=== PATIENT | female | born 1950 | race Caucasian/White ===

== ENCOUNTER 2018-08-04 09:26 | Day surgery (SDC) | payer BC, MEDICARE ==
--- NOTE | 2018-08-04 07:02 | History and Physical - [facility] ---
CHIEF COMPLAINT/HISTORY OF CHIEF COMPLAINT: This patient with a history of an implanted spinal cord stimulator 01/08/10 has had a battery depletion and is here for battery change. PAST MEDICAL HISTORY: Hypertension and thoracic aneurysm. MEDICATIONS ON ADMISSION: List to be provided. ALLERGIES: List to be provided. SYSTEMS REVIEW: The patient seems appropriate in no acute distress. The remainder of the systems review is positive for intractable lumbar radiculopathy. PHYSICAL EXAMINATION: Height and weight are not known. No vital signs. HEENT: Within normal limits. LUNGS: Clear. HEART: Rapid and regular. ABDOMEN: Nontender. MUSCULOSKELETAL: Examination of the musculoskeletal system, the incision for the generator in the right posterior gluteal margin was identified and the skin incision was intact. No breakdown or cellulitis. Bilateral lower extremity pain identified. No motor or sensory abnormalities. NEUROLOGIC: Cranial nerves are intact. IMPRESSION: 1. INTRACTABLE LUMBAR RADICULOPATHY, ICD-10 CODE M54.16 AND M54.17. 2. SPINAL CORD STIMULATOR AND INTERNAL GENERATOR, NONFUNCTIONAL. PLAN: The patent is here for a generator change. The procedure will be considered outpatient. An overnight stay should not be required. We will make no attempts to change the leads, only the generator. JOB NUMBER: [id number] MTDD
[~2018-08-04 09:26] MED LIST: 0.9 % SODIUM CHLORIDE 500ML 500 ML IV ONE; ACETAMINOPHEN 1,000 MG/100 ML BTL IVPB ONE; CEFAZOLIN 1 Gram 1 GM/50 ML BAG IVPB ONE; CEFAZOLIN 2 Gram 2 GM/50 ML BAG IVPB ONE; FAMOTIDINE 20MG TABLET PO ONE; MECLIZINE 25 MG TABLET PO ONE; METOCLOPRAMIDE 10 MG TABLET PO ONE; RINGERS SOLUTION,LACTATED 1,000 ML IV ONE
[2018-08-04] MEDS ORDERED: MIDAZOLAM HCL 2MG/2ML VIAL IV ONE (09:27)
[2018-08-04] MEDS ORDERED: LIDOCAINE 2% MDV (20MG/ML) 20ML VIAL IV ONE (09:27)
[2018-08-04] MEDS ORDERED: FENTANYL PF 100MCG/2ML VIAL IV ONE (09:27)
[2018-08-04] MEDS ORDERED: PROPOFOL 10 MG/ML VIAL IV ONE (09:27)
[2018-08-04] MEDS ORDERED: RINGERS SOLUTION,LACTATED 1,000 ML IV ONE ×2 (11:32→14:02)
[2018-08-04] MEDS ORDERED: BUPIVACAINE 0.5% W/EPI MPF 30 ML VIAL SQ ONE (13:47)
[2018-08-04] MEDS ORDERED: LIDOCAINE 1% W/EPI 1:100,000 MDV 20 ML VIAL SQ ONE (13:47)
--- NOTE | 2018-08-06 10:00 | Operative Note ---
DATE OF SURGERY: 08/04/2018 PREOPERATIVE DIAGNOSES: 1. Intractable lumbar radiculopathy ICD-10 code 954.16, M54.17. 2. Spinal cord stimulator and internal generator with battery depletion. SURGERY: Fluoroscopic-guided subcutaneous dissection, removal and replaced with internal pulse generator for a spinal cord stimulator. SURGEON: Donny Quintero D.O. INDICATIONS: This patient presents with a history of a spinal cord stimulator implant a number of years previous. Excellent results with the system. Over the last 6 months, this patient has noticed degrading stimulation patterns and then it completely ceased function. Computer assessment of the generator showed battery depletion. She is here for battery change without lead manipulation. ANESTHESIA PROVIDER: Yue Saab. PROCEDURE: Intravenous line, vital signs monitored, IV sedation. The patient positioned prone, sterile prep, sterile technique at the right posterior gluteal margin. The previous incision infiltrated, incision made and sub dissection was conducted to the generator pouch. The pouch was opened. The generator exteriorized and from the indwelling leads. The new Medtronic programmable rechargeable generator placed on to the field and interfaced with the leads. Antibiotic irrigation and Bovie hemostasis. The generator placed into the pouch. The incision was closed using Stratafix suture, 2-0 fascia, 3-0 skin. Dermabond closure. She was transported to the recovery room stable. No side effects from the procedure or sedation. When awake and alert, the system was activated and complex programming performed, re-establishing stimulation. She was prepared for discharge and requesting discharge home. DISCHARGE INSTRUCTIONS: 1. The sites to remain clean and dry. The patient may shower because of the Dermabond, but not sit in water. 2. Standard medications resumed, including the antibiotic Levaquin 500 mg once a day for 14 days. 3. Office to contact the patient in 24 to 48 hours, set up a time in 7 to 10 days for us to evaluate the sites. Through this period of time, she is to keep her activities low limit, bend, lift, push, pull. 4. All instructions were provided. Numbers to contact if problems given. She was then discharged. CC: Melo Neves M.D. NANCY
== END 2018-08-04 14:50 | disposition home or self-care (01) ==
LOC: SUR 09:26
PROVIDERS: ATTEND Pain Medicine Interventional Pain Medicine
DX: M54.16 Radiculopathy, lumbar region (principal); M54.17 Radiculopathy, lumbosacral region; I10 Essential (primary) hypertension; E11.9 Type 2 diabetes mellitus without complications; N18.3 Chronic kidney disease, stage 3 (moderate); E66.01 Morbid (severe) obesity due to excess calories
CPT/HCPCS: 36416; 82948; C1787; C1820; J7120

== ENCOUNTER 2019-01-19 08:20 | Day surgery (SDC) | payer BC ==
--- NOTE | 2019-01-19 06:26 | History and Physical - [facility] ---
CHIEF COMPLAINT/HISTORY OF CHIEF COMPLAINT: This patient presents with a history of an intractable lumbar radiculopathy. On 12/20/18 a spinal cord stimulator trial was conducted with 75-85% pain control. Due to the failure of therapy and the success of the trial she presents today for implantation of a permanent system. PAST MEDICAL HISTORY: Hypertension and thoracic aneurysm. MEDICATIONS ON ADMISSION: List to be provided. ALLERGIES: List to be provided. SYSTEMS REVIEW: The patient is appropriate in no acute distress. The remainder of the systems review is noted. PHYSICAL EXAMINATION: Height and weight are not known. Vital signs are not available. HEENT: Within normal limits. LUNGS: Clear. HEART: Rapid and regular. ABDOMEN: Nontender. MUSCULOSKELETAL: Examination of the musculoskeletal system shows diffuse tenderness throughout the lumbar spine. Range of motion causes pain throughout the low back and extending into the lower extremities across both the L4-L5 and L5-S1 pattern. Ambulation - No assistive device utilized. NEUROLOGIC: Cranial nerves are intact. IMPRESSION: 1. LUMBAR RADICULOPATHY, ICD-10 CODE M54.16 AND M54.17. 2. PERIPHERAL NERVE STIMULATOR NONFUNCTIONAL WITH INTERNAL GENERATOR. 3. SUCCESSFUL SPINAL CORD STIMULATOR TRIAL. PLAN: This patient had a successful epidural spinal cord stimulator trial, has nonfunctional peripheral nerve stimulators, but a generator that is intact. Our plan is to remove the peripheral stimulators, implant the two spinal cord stimulators and interface these leads with the functional generator previously used for the peripherals. The procedure will be considered outpatient although an overnight stay will be evaluated. JOB NUMBER: [id number] MTDD
[~2019-01-19 08:20] MED LIST changes: -0.9 % SODIUM CHLORIDE 500ML 500 ML IV ONE; -RINGERS SOLUTION,LACTATED 1,000 ML IV ONE
[2019-01-19] MEDS ORDERED: MIDAZOLAM HCL 2MG/2ML VIAL IV ONE (08:21)
[2019-01-19] MEDS ORDERED: HYDROMORPHONE HCL 2 MG/ML VIAL IV ONE (08:21)
[2019-01-19] MEDS ORDERED: LIDOCAINE 2% MDV (20MG/ML) 20ML VIAL IV ONE (08:21)
[2019-01-19] MEDS ORDERED: PROPOFOL 10 MG/ML VIAL IV ONE (08:21)
[2019-01-19] MEDS ORDERED: FENTANYL PF 100MCG/2ML VIAL IV ONE (08:21)
[2019-01-19] MEDS ORDERED: 0.9 % SODIUM CHLORIDE 1000ML 1,000 ML IV ONE ×2 (08:58→11:31)
[2019-01-19] MEDS ORDERED: RINGERS SOLUTION,LACTATED 1,000 ML IV ONE (08:58)
[2019-01-19] MEDS ORDERED: BUPIVACAINE 0.5% W/EPI MPF 30 ML VIAL SQ ONE (10:30)
[2019-01-19] MEDS ORDERED: CEFAZOLIN 1G VIAL IR ONE (10:30)
[2019-01-19] MEDS ORDERED: LIDOCAINE 1% W/EPI 1:100,000 MDV 20 ML VIAL SQ ONE (10:30)
--- NOTE | 2019-01-20 08:14 | Operative Note - [facility] ---
DATE OF SURGERY: 01/19/2019 PREOPERATIVE DIAGNOSIS: 1. Intractable lumbar radiculopathy, ICD-10 code M54.16 and M54.17. 2. Two peripheral nerve stimulators and internal generator, nonfunctional. OPERATION: 1. INCISION, SUBCUTANEOUS DISSECTION AND REMOVAL OF TWO IMPLANTED PERIPHERAL NERVE STIMULATORS. 2. INCISION, SUBCUTANEOUS DISSECTION AND REMOVAL OF INTERNAL PULSE GENERATOR FOR PERIPHERAL NERVE STIMULATOR RIGHT POSTERIOR GLUTEA MARGIN. 3. FLUOROSCOPICALLY GUIDED EPIDURAL ACCESS LEFT T11-T12 PLACEMENT OF SPINAL CORD STIMULATOR LEAD 1 MEDTRONIC OCTAPOLAR EIGHT ELECTRODES POSITIONED LEFT T7. 4. FLUOROSCOPICALLY GUIDED EPIDURAL ACCESS LEFT T12-L1 PLACEMENT OF SPINAL CORD STIMULATOR LEAD 2 A MEDTRONIC OCTAPOLAR EIGHT ELECTRODES POSITIONED RIGHT T7. 5. COMPLEX PROGRAMMING LEAD 1 OVER TWENTY MINUTES FOLLOWED BY THE COMPLEX PROGRAMMING OF LEAD 2 OVER TWENTY MINUTES. 6. INCISION, SUBCUTANEOUS DISSECTION AND ANCHORING OF LEADS 1 AND LEADS 2 TO THE SUPRASPINOUS FASCIA WITH A MEDTRONIC LOCKING ANCHOR AND NONABSORBABLE SUTURE. 7. REVISION OF RIGHT POSTERIOR GLUTEAL MARGIN POUCH FOR GENERATOR, TUNNELLING OF LEADS 1 AND LEADS 2 INTO GENERATOR POUCH, EACH LEAD INTERFACED TO PREVIOUSLY IMPLANTED GENERATOR FOR PERIPHERAL NERVE STIMULATORS. 8. ANTIBIOTIC IRRIGATION, BOVIE FOR HEMOSTASIS, PLACEMENT OF GENERATOR POUCH, PLACEMENT OF LEADS INTO POUCH, CLOSURE OF BOTH INCISIONS USING STRATAFIX SUTURE 2-0 FASCIA, 3-0 SKIN. 9. CLOSURE OF PERIPHERAL NERVE STIMULATOR SITES USING VICRYL FOR THE FASCIA AND DELIA FOR THE SKIN. 10. DERMABOND CLOSURE OVER ALL INCISIONS. THE PATIENT WAS TRANSPORTED TO THE RECOVERY ROOM STABLE, NO SIDE EFFECTS FROM THE PROCEDURE OR SEDATION. 11. COMPLEX PROGRAMMING INTERNAL PULSE GENERATOR HOME USE TWO EPIDURAL STIMULATORS 20 MINUTES. SURGEON: Donny Quintero D.O. ANESTHESIA: Local sedation. ANESTHESIA PROVIDER: Leonard Spencer CRNA INDICATION: This patient presents with a history of intractable lumbar radiculopathy. A number of years previous perhaps 6-10 peripheral nerve stimulators had been placed, since then they have become nonfunctional. A recent revision and replacement of the generator for peripheral stimulators did not appreciable improve pain control. At the point a two lead spinal cord epidural trial was conducted with 75-85% pain control. Due to the success of the epidural leads and the failure of the peripheral leads, she opted to implant the epidural leads and remove the peripherals. The generator which had been recently placed will be used for the epidural leads. PROCEDURE: Intravenous line, vital sign monitoring, IV sedation by Anesthesia, the patient was positioned prone. Sterile prep and sterile technique. The previous incisions for the two peripheral nerve stimulators were identified and marked, infiltrated with local, an incision was made and subcutaneous dissection was conducted. The peripheral stimulators were removed intact along with the suture. The right posterior gluteal margin generator pouch for the leads was infiltrated, an incision was made, and subcutaneous dissection was conducted to the generator pouch. The generator is exteriorized along with the connections to the peripheral leads. Antibiotic irrigation, Bovie for hemostasis, a 2-0 Vicryl and delia were used to close the two peripheral nerve stimulator incisions. At the midline epidural interspace at T11-T12 and T12-L1 are both marked on the skin, the skin was infiltrated and then using two curved access Epi-Med needles with loss of resistance the space was accessed, atraumatic, no blood, no CSF. At T11-T12 the spinal cord stimulator Lead 1 the Medtronic Octapolar electrodes was advanced, positioned left of midline at T7. With the epidural access at T12-L1 same technique, atraumatic, no blood, no CSF, spinal cord stimulator Lead 2 also Medtronic Octapolar electrodes was advanced and positioned right of midline at T7. With the patient awake and alert, complex programming over twenty minutes followed by complex programming over twenty minutes was performed resulting in a complete pattern of stimulation across the back into the hips and legs. The patient indicated we hit all of the areas. She was at that point given the option to implant or remove and she opted to implant. Questions were repeated with the same response. The skin below both needles was infiltrated, incision was made and subcutaneous dissection was conducted to the supraspinous fascia. The needles were removed and each lead was anchored to the supraspinous fascia with a Medtronic anchor and nonabsorbable suture. The previous incision and generator pouch to the right was then modified to accommodate the new leads. A tunnelling tool carried the new leads into the generator pouch and then each lead was interfaced to the generator. Antibiotic irrigation, Bovie for hemostasis, the generator was then placed into the pouch, secured with the leads, the leads were then coiled and placed into their own pouch and then both of the incisions were closed using Stratafix suture, 2-0 for fascia and 3-0 for the skin. Dermabond closure over all incisional sites. The patient was transferred to the Recovery Room stable. No side effects from the procedure or sedation was noted. She was requesting discharge home. She was monitored until stable. DISCHARGE INSTRUCTIONS: 1. Although the Dermabond will allow showering, she should not sit in water. 2. Standard medications should be resumed including antibiotic Levaquin 500 mg once a day for fourteen days. 3. The office will contact the patient in the next 12-24 hours to set up a time in the next 7-10 days for us to evaluate the sites, until then she is to keep her activities limited, limiting bend, lift push and pull. All other instructions have been provided, numbers to contact if problems given. She will evaluated in the office in 7-10 days. She was then discharged . JOB NUMBER: [id number] MTDD
--- NOTE | 2019-01-21 09:53 | RADIOLOGY REPORT ---
EXAMINATION: Thoracic Spine Single View EXAM DATE: 01/19/2019 1:49 PM TECHNIQUE: Lateral view INDICATION: S/P SCS IMPLANT, LEADS AND GENERATOR COMPARISON: None ENCOUNTER: Initial FINDINGS: Thoracic epidural neurostimulator lead tip positioning at T7 No significant extraneous finding IMPRESSION: TENS lead tip positioning at T7 Dictated by: Harris Li MD on 01/20/2019 3:42 PM. .
== END 2019-01-19 13:45 | disposition home or self-care (01) ==
LOC: SUR 08:20
PROVIDERS: ATTEND Pain Medicine Interventional Pain Medicine
DX: M54.16 Radiculopathy, lumbar region (principal); M54.17 Radiculopathy, lumbosacral region; I10 Essential (primary) hypertension; E11.9 Type 2 diabetes mellitus without complications; N18.3 Chronic kidney disease, stage 3 (moderate); C50.919 Malignant neoplasm of unspecified site of unspecified female breast; I71.2 Thoracic aortic aneurysm, without rupture
CPT/HCPCS: 36416; 72020; 82948; 95972; C1733; J0690; J7030; J7120